=== PATIENT | male | born 1990 | race Caucasian/White ===

== ENCOUNTER → 2017-01-02 | Outpatient (CLI) | payer SELFPAY ==
[2015-04-13 16:04] VITALS: BP 126/79
[~2017-01-02] MED LIST: AMOXICILLIN 50500 MG PO; AUGMENTIN 875-1 EACH; CEFTIN500 MG PO; GOOD NEIGHBOR200 M3 PO; MAPAP500 M2 PO; NORCO 325 MG-51 TA1 PO; NORCO 325 MG-51 TAB PO
== END ==
LOC: RAD 17:12
DX: R06.02 Shortness of breath (principal); Z98.890 Other specified postprocedural states

== ENCOUNTER → 2018-04-16 | Outpatient (CLI) | payer SELFPAY ==
[2015-04-13 16:04] VITALS: BP 126/79
== END ==
LOC: RAD 16:07
DX: R06.02 Shortness of breath (principal)

== ENCOUNTER 2018-06-30 05:07 | Emergency (ER) | payer OTHER ==
[2018-06-30 06:25] LABS: EOS # 0.1 (0.04-0.40); EOS % 1.1 % (0.0-4.0); HEMATOCRIT 43.6 % (42.0-52.0); HEMOGLOBIN 15.2 g/dL (13.5-18.0); LYMPH# 0.9 (1.50-4.00); MEAN CELL VOLUME 88 fl (78-100); MEAN CORPUSCULAR HEMOGLOBIN 31 pg (27-31); MEAN CORPUSCULAR HGB CONC 35 g/dL (33-37); MEAN PLATELET VOLUME 9.5 fl (7.4-10.4); MONO # 0.4 (0.20-0.80); NEU # 5.9 (1.40-6.50); PLATELET COUNT 262 K/mm3 (130-400); RED BLOOD COUNT 4.97 M/mm3 (4.20-5.60); RED CELL DISTRIBUTION WIDTH 13.9 % (11.5-14.5); WHITE BLOOD COUNT 7.4 K/mm3 (4.8-10.8)
[2018-06-30 06:38] LABS: PH-URINE 5.5 (5.0 - 8.0); URINE APPEARANCE CLEAR; URINE COLOR YELLOW
[2018-06-30 06:39] LABS: ALBUMIN 4.7 g/dL (3.5-5.0); CALCIUM 9.3 mg/dL (8.4-10.2); POTASSIUM 3.8 mmol/L (3.6-5.0); TOTAL BILIRUBIN 0.5 mg/dL (0.2-1.3); TOTAL PROTEIN 7.8 g/dL (6.3-8.2)
[2018-06-30 06:39] LABS: URINE BILIRUBIN NEGATIVE (NEGATIVE); URINE BLOOD 50 ery/uL (NEGATIVE); URINE GLUCOSE NEGATIVE (NEGATIVE); URINE KETONE 1+ (NEGATIVE); URINE LEUKOCYTE ESTERASE NEGATIVE (NEGATIVE); URINE NITRATE NEGATIVE (NEGATIVE); URINE PROTEIN(semi-quant) NEGATIVE (NEGATIVE); URINE UROBILINOGEN NORMAL (NORMAL); URINE WBC 0-1 /hpf (0-3)
[2018-06-30 06:40] LABS: URINE MUCUS PRESENT (NOT PRESENT)
[2018-06-30 08:12] VITALS: BP 121/70
[2018-06-30] MEDS ORDERED: [UNRECOGNIZED DRUG - CODE] PO (18:55)
[2018-07-01] MEDS ORDERED: KEPPRA 500MG500 MG PO (10:24)
[2018-07-01] MEDS ORDERED: COLACE100 M1 PO (10:24)
[2018-07-01] MEDS ORDERED: ACETAMINOPHEN-H1 TA2 PO (10:24)
== END 2018-06-30 08:12 | disposition home or self-care (01) ==
LOC: ED 05:07
PROVIDERS: Nurse Practitioner
DX: R07.89 Other chest pain (principal); R56.9 Unspecified convulsions; F17.210 Nicotine dependence, cigarettes, uncomplicated

== ENCOUNTER 2018-07-05 10:35 | Emergency (ER) | payer SELFPAY ==
[~2018-07-05] VITALS: Ht 198.1 cm; Wt 72.7 kg
[~2018-07-05 10:35] MED LIST changes: +ACETAMINOPHEN-H1 TA2 PO; +COLACE100 M1 PO; +KEPPRA 500MG500 MG PO; +[UNRECOGNIZED DRUG - CODE] PO
[2018-07-05 11:28] LABS: ALBUMIN 5.2 g/dL (3.5-5.0); BASO # 0.1 (0.02-0.10); CALCIUM 9.6 mg/dL (8.4-10.2); EOS # 0.1 (0.04-0.40); EOS % 1.1 % (0.0-4.0); HEMATOCRIT 45.3 % (42.0-52.0); HEMOGLOBIN 15.8 g/dL (13.5-18.0); LYMPH# 1.4 (1.50-4.00); MEAN CELL VOLUME 87 fl (78-100); MEAN CORPUSCULAR HEMOGLOBIN 30 pg (27-31); MEAN CORPUSCULAR HGB CONC 35 g/dL (33-37); MEAN PLATELET VOLUME 9.4 fl (7.4-10.4); MONO # 0.6 (0.20-0.80); NEU # 5.1 (1.40-6.50); PLATELET COUNT 284 K/mm3 (130-400); POTASSIUM 3.6 mmol/L (3.6-5.0); RED BLOOD COUNT 5.24 M/mm3 (4.20-5.60); RED CELL DISTRIBUTION WIDTH 13.7 % (11.5-14.5); TOTAL BILIRUBIN 0.7 mg/dL (0.2-1.3); TOTAL PROTEIN 8.5 g/dL (6.3-8.2); WHITE BLOOD COUNT 7.2 K/mm3 (4.8-10.8)
[2018-07-05] MEDS ORDERED: CYCLOBENZAPRINE10 M1 PO (14:48)
[2018-07-05] MEDS ORDERED: TRAMADOL HCL E100 MG PO (14:48)
[2018-07-05] MEDS ORDERED: DILANTIN 100MG100 MG PO (14:48)
[2018-07-05 15:27] VITALS: BP 119/81
== END 2018-07-05 15:20 | disposition home or self-care (01) ==
LOC: ED 10:35
PROVIDERS: Nurse Practitioner Primary Care
DX: R41.0 Disorientation, unspecified (principal); T42.6X5A Adverse effect of other antiepileptic and sedative-hypnotic drugs, initial encounter; F17.210 Nicotine dependence, cigarettes, uncomplicated; Z98.890 Other specified postprocedural states; Z86.69 Personal history of other diseases of the nervous system and sense organs
CPT/HCPCS: A9585; J2270; J7030